=== PATIENT | female | born 1980 | race Caucasian/White ===

== ENCOUNTER 2021-03-15 10:47 | Emergency (ER) | payer BC ==
[~2021-03-15] VITALS: Ht 170.2 cm; Wt 60.8 kg
--- NOTE | 2021-03-15 11:04 | NUR ---
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
--- NOTE | 2021-03-15 11:17 | NUR ---
PT AMBULATORY TO ROOM FROM TRIAGE, CHANGED INTO GOWN, MONITORS IN PLACE. PT C/O N/V SINCE YESTERDAY WITH R-SIDED CP STARTING THIS MORNING. PT STATES SHE FEELS WEAK AND LETHARGIC. CALL LIGHT WITHIN REACH.
--- NOTE | 2021-03-15 11:21 | NUR ---
ERP AT BS FOR EVAL
[2021-03-15] MEDS ORDERED: ONDANSETRON ODT 4 MG PO ONE (11:30)
[2021-03-15] MEDS ORDERED: ASPIRIN 81 MG TABLET CHEW PO ONE (11:30)
[2021-03-15] MEDS ORDERED: ASPIRIN 81 MG TABLET CHEW ONE (11:37)
[2021-03-15] MEDS ORDERED: ONDANSETRON ODT 4 MG ONE (11:37)
--- NOTE | 2021-03-15 11:40 | NUR ---
XRAY AT BS
[2021-03-15] MEDS ORDERED: KETOROLAC 30 MG/1 ML ONE (11:47)
[2021-03-15 11:48] LABS: BASOPHILS % (AUTO) 0 % (0-1); EOSINOPHILS % (AUTO) 1 % (1-7); LYMPHOCYTES % (AUTO) 22 % (22-44); MEAN CORPUSCULAR HEMOGLOBIN 27.2 pg (27.0-34.8); MEAN PLATELET VOLUME 8.1 fL (7.4-10.4); MONOCYTES % (AUTO) 10 % (2-9); NEUTROPHILS % (AUTO) 66 % (42-75); PLATELET COUNT 217 x10^3/uL (130-400); RED BLOOD COUNT 4.14 x10^6/uL (3.82-5.3); RED CELL DISTRIBUTION WIDTH 16.5 % (9.6-15.2)
--- NOTE | 2021-03-15 11:52 | NUR ---
PT MEDICATED PER EMAR. NADN/VSS. CALL LIGHT WITHIN REACH, BED IN LOWEST POSITION, BED RAILS UP X2. WCTM
[2021-03-15 11:56] LABS: ALANINE AMINOTRANSFERASE 18 U/L (12-78); ALBUMIN 3.3 g/dL (3.4-5.0); ANION GAP 7 mmol/L (5-15); CALCIUM 8.3 mg/dL (8.5-10.1); CHLORIDE 107 mmol/L (98-107); CREATININE 0.69 mg/dL (0.55-1.02)
[2021-03-15 12:00] LABS: ALKALINE PHOSPHATASE 51 U/L (45-117); BILIRUBIN,TOTAL 0.5 mg/dL (0.2-1.0); TOTAL PROTEIN 6.9 g/dL (6.4-8.2); TROPONIN I < 0.015 ng/mL (0.000-0.045)
[2021-03-15] MEDS ORDERED: KETOROLAC 30 MG/1 ML IM ONE (12:00)
[2021-03-15] MEDS ORDERED: POTASSIUM CHLORIDE 20 MEQ PACKET ONE (12:28)
[2021-03-15] MEDS ORDERED: POTASSIUM CHLORIDE 20 MEQ PACKET PO ONE (12:30)
[2021-03-15 12:31] VITALS: BP 93/49
--- NOTE | 2021-03-15 12:46 | NUR ---
erp at for recheck
--- NOTE | 2021-03-15 13:01 | NUR ---
Patient given discharge instructions and rx, they have confirmed that they understand the instructions. Patient ambulatory with steady gait.
== END 2021-03-15 13:03 | disposition home or self-care (01) ==
LOC: ED 11:43
DX: R11.2 Nausea with vomiting, unspecified (principal); Z20.822 Contact with and (suspected) exposure to COVID-19; R07.89 Other chest pain; E87.6 Hypokalemia; R94.31 Abnormal electrocardiogram [ECG] [EKG]
CPT/HCPCS: 36415; 71045; 80053; 83690; 84484; 84703; 85025; 93005; 96372; 99285; J1885; Q0162; U0003; U0005